=== PATIENT | female | born 1935 | race African-American/Black ===

== ENCOUNTER 2018-09-06 18:00 | Emergency (ER) | payer BC, OTHER ==
[~2018-09-06] VITALS: Ht 167.6 cm; Wt 100.7 kg
[~2018-09-06 18:00] MED LIST: ALLOPURINOL 10100 M1 PO; ASPIR 8181 MG PO; ATORVASTATIN CA20 MG PO; CEFDINIR300 MG PO; COREG25 MG PO; DIOVAN320 MG PO; KLOR-CON 1010 MEQ PO; LASIX 40 MG TAB40 M2 PO; PROAIR HFA8.5 GM INH; SYNTHROID75 MCG PO
[2018-09-06] MEDS ORDERED: IRBESARTAN300 MG PO (18:47)
[2018-09-06 18:49] LABS: ABSOLUTE NEUTROPHILS 2.4 thou/uL (1.4-8.2); BASOPHILS 0.7 % (0.0-2.0); EOSINOPHILS 3.7 % (0.0-3.0); HEMATOCRIT 31.4 % (37.0-47.0); HEMOGLOBIN 10.5 gm/dL (12.0-15.0); MCH 34.1 pg (26.0-34.0); MCHC 33.4 g/dL (28.0-37.0); MONOCYTES 10.8 % (1.0-8.0); PLATELET COUNT 230 thou/uL (150-400); POLYS 46.8 % (36.0-66.0); RBC 3.08 mil/uL (4.20-5.00); RDW 14.8 % (10.5-14.5); WBC 5.1 thou/uL (4.0-11.0)
[2018-09-06 18:54] LABS: ANION GAP 11 mmol/L (7-16); BUN 15 mg/dL (7-18); CALCIUM 9.7 mg/dL (8.5-10.1); CHLORIDE 101 mmol/L (98-107); CO2 26 mmol/L (21-32); CREATININE 0.9 mg/dL (0.6-1.0); GLUCOSE 103 mg/dL (74-106); POTASSIUM 3.9 mmol/L (3.5-5.1); SODIUM 138 mmol/L (136-145)
[2018-09-06 19:03] LABS: TROPONIN-I <0.06 ng/mL (<0.06)
[2018-09-06 19:53] VITALS: BP 204/97
--- NOTE | 2018-09-08 18:25 | EKG ---
[place] [id number] [address] 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: [place] : 1935 Requested By: Osmany Early Order Number: [id number] MD: Quinn Abbott Measurements Intervals [place] Rate: 62 P: 37 NE: 197 QRS: -29 QRSD: 132 T: 110 QT: 486 QTc: 494 Interpretive Statements Sinus rhythm left atrial enlargement Ventricular conduction delay Voltage criteria for LVH Compared to ECG 12/17/2017 17:27:10 No significant changes Electronically Signed On 09-08-2018 18:25:42 CDT by Quinn Abbott [email or web address] ��������������������������������������������� <ELECTRONICALLY SIGNED> ���������������������������������������� By: Quinn Abbott MD ��������������������������������������������� 09/08/18 1825 1841 40 Quinn Abbott MD /ZACK
== END 2018-09-06 19:57 | disposition home or self-care (01) ==
LOC: ER 18:00
PROVIDERS: Emergency Medicine
DX: R42 Dizziness and giddiness (principal); I50.9 Heart failure, unspecified; M10.9 Gout, unspecified; E78.5 Hyperlipidemia, unspecified; E03.9 Hypothyroidism, unspecified